=== PATIENT | female | born 1965 | race Two or more races ===

== ENCOUNTER 2018-03-30 07:00 | Day surgery (SDC) | payer OTHER ==
[~2018-03-30] VITALS: Ht 162.6 cm; Wt 88.5 kg
[2018-03-30] MEDS ORDERED: DOXYCYCLINE HY100 MG PO (13:14)
[2018-03-30] MEDS ORDERED: NAPROXEN500 MG PO (13:14)
== END 2018-03-30 13:00 | disposition home or self-care (01) ==
LOC: CIR.AMB 07:00 → RECOVERY 07:13 → O/R 07:13 → RECOVERY 12:15 → O/R 13:00 → CIR.AMB 13:00 → EDSTATUS 13:15 → RECOVERY 13:15
DX: D25.0 Submucous leiomyoma of uterus (principal); N84.0 Polyp of corpus uteri